=== PATIENT | male | born 1990 | race Two or more races ===

== ENCOUNTER 2024-08-07 14:32 | Emergency (ER) | payer MEDICAID ==
[~2024-08-07] VITALS: Ht 177.8 cm; Wt 142.9 kg
[2024-08-07 14:36] VITALS: O2SAT 100
[2024-08-07 15:59] VITALS: O2SAT 98
[2024-08-07 16:20] LABS: HEMATOCRIT. 33.7 % (42.0-52.0); HEMOGLOBIN. 10.9 g/dL (14.0-18.0); LYMPHOCYTES % 16.4 % (20.0-50.0); MEAN CORPUSCULAR HGB CONC 32.3 g/dL (31.0-37.0); MEAN CORPUSCULAR VOLUME 77.3 fL (80.0-94.0); MEAN PLATELET VOLUME 8.4 fl (7.4-10.4); MONOCYTES % 7.2 % (2.0-8.0); NEUTROPHILS % 70.4 % (40.0-76.0); PLATELET 111 x1000/uL (130-400); RED BLOOD CELL COUNT 4.36 mill/uL (4.7-6.1); RED CELL DISTRIBUTION WIDTH 25.4 % (11.6-14.6)
[2024-08-07 16:22] LABS: ADD RBC MORPHOLOGY YES; DIFFERENTIAL COMMENT 1
[2024-08-07 16:28] LABS: POTASSIUM 4.7 mEq/L (3.5-5.1)
[2024-08-07 16:29] LABS: CALCIUM 6.8 mg/dL (8.7-10.4)
[2024-08-07 16:33] LABS: CREATININE 1.7 mg/dL (0.6-1.3)
[2024-08-07 16:39] LABS: ANISOCYTOSIS 2+; MICROCYTOSIS 1+; PLATELET ESTIMATE DECREASED
[2024-08-07] MEDS ORDERED: FAMOTIDINE 20MG/2ML VIAL IV ONE (17:45)
[2024-08-07] MEDS: FAMOTIDINE 20MG/2ML VIAL IV NR (20:48)
[2024-08-07] MEDS: SODIUM CHLORIDE 0.9% 1,000 ML IV ONE (20:48)
[2024-08-07 21:10] VITALS: BP 130/68; PULSE 83; RESP 17; TEMP 97.8
== END 2024-08-07 22:37 | disposition left against medical advice (07) ==
LOC: ER 14:32 → EDBEDREQ 19:07 → ER 22:37
DX: N17.9 Acute kidney failure, unspecified (principal); K52.9 Noninfective gastroenteritis and colitis, unspecified; N50.89 Other specified disorders of the male genital organs
CPT/HCPCS: 99285; 96374; 93976; 71045; 96361; 80048; 83690; 85025; 36415; 76870; 93005; J3490; J7030